=== PATIENT | female | born 1965 | race Asian ===

== ENCOUNTER 2018-09-22 07:14 | Inpatient (IN) | payer MEDICAID ==
[2018-09-15 13:17] LABS: ADD MAN DIFF? NO
[2018-09-15 13:23] LABS: BASOPHILS % 0.1 % (0.0-2.0); EOSINOPHILS # 0.3 10^3/ul (0.0-0.5); EOSINOPHILS % 4.7 % (0.0-7.0); HEMATOCRIT 42.1 % (37.0-47.0); LYMPHOCYTES # 3.1 10^3/ul (0.8-2.9); LYMPHOCYTES % 42.9 % (15.0-51.0); MEAN CORPUSCULAR HEMOGLOBIN 24.8 pg (29.0-33.0); MEAN CORPUSCULAR HGB CONC 30.9 g/dl (32.0-37.0); MEAN CORPUSCULAR VOLUME 80.3 fl (82.0-101.0); MEAN PLATELET VOLUME 10.2 fl (7.4-10.4); MONOCYTE # 0.5 10^3/ul (0.3-0.9); MONOCYTES % 6.6 % (0.0-11.0); NEUTROPHIL # 3.3 10^3/ul (1.6-7.5); NEUTROPHILS % 45.4 % (39.0-77.0); PLATELET COUNT 193 10^3/UL (140-415); RED BLOOD COUNT 5.24 10^6/ul (4.20-5.40); RED CELL DISTRIBUTION WIDTH 13.7 % (11.5-14.5)
[2018-09-15 13:23] LABS: WHITE BLOOD COUNT 7.3 10^3/ul (4.8-10.8)
[2018-09-15 13:43] LABS: ALANINE AMINOTRANSFERASE 30 IU/L (13-69); ALBUMIN 4.8 g/dl (3.3-4.9); ALBUMIN/GLOBULIN RATIO 1.09; ALKALINE PHOSPHATASE 63 IU/L (42-121); ANION GAP 17 (5-13); ASPARTATE AMINO TRANSFERASE 35 IU/L (15-46); BILIRUBIN,INDIRECT 0.2 mg/dl (0-1.1); BILIRUBIN,TOTAL 0.2 mg/dl (0.2-1.3); BLOOD UREA NITROGEN 14 mg/dl (7-20); CALCIUM 9.9 mg/dl (8.4-10.2); CARBON DIOXIDE 27 mmol/L (21-31); CHLORIDE 98 mmol/L (97-110); CREATININE 0.78 mg/dl (0.44-1.00); Estimated GFR > 60 mL/min (>60); GLUCOSE 81 mg/dl (70-220); POTASSIUM 4.5 mmol/L (3.5-5.1); SODIUM 142 mmol/L (135-144); TOTAL PROTEIN 9.2 g/dl (6.1-8.1)
[2018-09-15 13:45] LABS: INR 0.87; PROTIME 11.9 Sec (11.9-14.9); PT RATIO 0.9
[2018-09-22] MEDS: SOD CHLORIDE 0.9% 1,000 ML IV (08:00)
[2018-09-22] MEDS: VANCOMYCIN HCL 2 GM in SOD CHLORIDE 0.9% 500 ML IVPB (08:37)
[2018-09-22] MEDS ORDERED: LIDOCAINE 2% (SDV) 5 ML INJ (08:42)
[2018-09-22] MEDS ORDERED: PROPOFOL 40 ML (08:42)
[2018-09-22] MEDS ORDERED: CEFAZOLIN 1 GM INJ (08:42)
[2018-09-22] MEDS ORDERED: FENTAnyl 50 MCG/ML VIAL ×2 (08:43→10:42)
[2018-09-22] MEDS ORDERED: FAMOTIDINE 20 MG INJ (08:43)
[2018-09-22] MEDS ORDERED: MIDAZOLAM 1 MG/ML 2 ML INJ (08:43)
[2018-09-22] MEDS ORDERED: ONDANSETRON 4 MG INJ (08:46)
[2018-09-22] MEDS: ACETAMINOPHEN 500 MG TAB PO (08:50)
[2018-09-22] MEDS ORDERED: FENTAnyl 50 MCG/ML VIAL IV ×2 (09:30)
[2018-09-22] MEDS ORDERED: DIPHENHYDRAMINE 50 MG INJ IV (09:30)
[2018-09-22] MEDS ORDERED: ONDANSETRON 4 MG INJ IV ×2 (09:30→12:00)
[2018-09-22] MEDS ORDERED: OXYCODONE/ACETAMINOPHEN (5/325) TAB PO ×2 (09:30)
[2018-09-22] MEDS ORDERED: HYDROmorphONE 1 MG/5 ML IV SYRINGE IV ×2 (09:30)
[2018-09-22] MEDS ORDERED: LABETALOL HCL 20MG INJ IV (09:30)
[2018-09-22] MEDS ORDERED: morphine (1 MG/ML) 10ML SYRINGE IV ×2 (09:30)
[2018-09-22] MEDS ORDERED: MEPERIDINE 25 MG INJ IV (09:30)
[2018-09-22] MEDS ORDERED: ALBUTEROL 0.083% (NEB) 2.5 MG/3 ML AMP HHN (09:30)
[2018-09-22] MEDS: D5W-0.45 NACL + KCL 20 MEQ 1,000 ML IV (11:58)
[2018-09-22] MEDS ORDERED: ACETAMINOPHEN 1000MG/100ML IV 100 ML IVPB (12:00)
[2018-09-22] MEDS ORDERED: morphine 2 MG INJ IV (12:00)
[2018-09-22] MEDS ORDERED: hydrALAzine 20 MG INJ IV (15:30)
[2018-09-22] MEDS ORDERED: GLUCOSE GEL 15 GRAM TUBE BUCCAL (16:00)
[2018-09-22] MEDS ORDERED: GLUCAGON 1 MG INJ IM (16:00)
[2018-09-22] MEDS ORDERED: DEXTROSE 50% 50 ML SYRINGE IV ×2 (16:00)
[2018-09-22] MEDS ORDERED: GLUCOSE GEL 15 GRAM TUBE PO ×2 (16:00)
[2018-09-22] MEDS: 1/2 NS + KCL 20 MEQ 1,000 ML IV (16:03)
[2018-09-22 16:27] LABS: ANION GAP 9 (5-13); BLOOD UREA NITROGEN 11 mg/dl (7-20); CALCIUM 8.5 mg/dl (8.4-10.2); CARBON DIOXIDE 27 mmol/L (21-31); CHLORIDE 105 mmol/L (97-110); Estimated GFR > 60 mL/min (>60); GLUCOSE 101 mg/dl (70-220); SODIUM 141 mmol/L (135-144)
[2018-09-22] MEDS: INSULIN ASPART [NOVOLOG] 3 ML PEN SC ×2 (17:50→21:00)
[2018-09-23] MEDS: ACCU-CHEK XX (02:00)
[2018-09-23 05:21] LABS: ADD MAN DIFF? NO
[2018-09-23 05:32] LABS: BASOPHILS % 0.3 % (0.0-2.0); EOSINOPHILS # 0.3 10^3/ul (0.0-0.5); EOSINOPHILS % 4.6 % (0.0-7.0); HEMATOCRIT 38.9 % (37.0-47.0); HEMOGLOBIN 11.8 g/dl (12.0-16.0); LYMPHOCYTES # 2.9 10^3/ul (0.8-2.9); LYMPHOCYTES % 41.1 % (15.0-51.0); MEAN CORPUSCULAR HEMOGLOBIN 25.1 pg (29.0-33.0); MEAN CORPUSCULAR HGB CONC 30.3 g/dl (32.0-37.0); MEAN CORPUSCULAR VOLUME 82.6 fl (82.0-101.0); MEAN PLATELET VOLUME 10.5 fl (7.4-10.4); MONOCYTE # 0.5 10^3/ul (0.3-0.9); MONOCYTES % 6.5 % (0.0-11.0); NEUTROPHIL # 3.3 10^3/ul (1.6-7.5); NEUTROPHILS % 47.2 % (39.0-77.0); PLATELET COUNT 174 10^3/UL (140-415); RED BLOOD COUNT 4.71 10^6/ul (4.20-5.40); RED CELL DISTRIBUTION WIDTH 14.1 % (11.5-14.5)
[2018-09-23 05:50] LABS: HEMOGLOBIN A1C 7.3 % (0-5.9)
[2018-09-23] MEDS: PANTOPRAZOLE (EC) 40 MG TAB PO (06:01)
[2018-09-23] MEDS: 1/2 NS + KCL 20 MEQ 1,000 ML IV (06:01)
[2018-09-23] MEDS: INSULIN ASPART [NOVOLOG] 3 ML PEN SC ×2 (07:50→11:40)
== END 2018-09-23 16:50 | disposition home or self-care (01) | DRG 581 ==
LOC: REC 07:14 → MS1 12:57
PROC: 0HTT0ZZ Resection of Right Breast, Open Approach (ICD-10-PCS; principal; 2018-09-22 09:53)
PROC: 07B50ZZ Excision of Right Axillary Lymphatic, Open Approach (ICD-10-PCS; 2018-09-22 09:53)
DX: C50.911 Malignant neoplasm of unspecified site of right female breast (principal); E11.9 Type 2 diabetes mellitus without complications; I10 Essential (primary) hypertension; F17.200 Nicotine dependence, unspecified, uncomplicated
CPT/HCPCS: 71045; 80048; 80053; 82962; 83036; 85025; 85610; 85730; 88307; 93005